=== PATIENT | male | born 1985 | race Caucasian/White ===

== ENCOUNTER 2021-06-23 14:35 | Outpatient (CLI) | payer BC | END 2021-06-23 14:36 | disposition home or self-care (01) | LOC: BICRAD 14:35 | PROVIDERS: ATTEND Physician Assistant | DX: M54.2 Cervicalgia (principal); M54.6 Pain in thoracic spine; M54.50 Low back pain, unspecified; G89.29 Other chronic pain; M51.34 Other intervertebral disc degeneration, thoracic region; M47.816 Spondylosis without myelopathy or radiculopathy, lumbar region; Z87.828 Personal history of other (healed) physical injury and trauma | CPT/HCPCS: 72040; 72072; 72100 ==

== ENCOUNTER 2021-07-12 12:36 | Outpatient (CLI) | payer BC | END 2021-07-12 12:37 | disposition home or self-care (01) | LOC: MRI 12:36 | PROVIDERS: ATTEND Physician Assistant | DX: S22.030D Wedge compression fracture of third thoracic vertebra, subsequent encounter for fracture with routine healing (principal); M47.814 Spondylosis without myelopathy or radiculopathy, thoracic region; M51.24 Other intervertebral disc displacement, thoracic region | CPT/HCPCS: 72146 ==